=== PATIENT | male | born 1940 | race Caucasian/White ===

== ENCOUNTER 2017-01-06 09:50 | Inpatient (IN) | payer MEDICARE, OTHER ==
[~2017-01-06] VITALS: Ht 193 cm; Wt 66.2 kg
[2017-01-06 11:31] LABS: HEMOGLOBIN 13.8 gm/dl (14.0-17.5); RED BLOOD COUNT 4.52 M/UL (4.20-5.50); WHITE BLOOD COUNT 19.8 K/UL (4.5-11.0)
[2017-01-06] MEDS ORDERED: LEVEMIR100 UNIT/1 SQ (20:56)
[2017-01-06] MEDS ORDERED: ROCEPHIN 11 G/50 ML INJ (20:57)
[2017-01-06] MEDS ORDERED: NAMENDA5 MG PO ×2 (20:58→20:59)
[2017-01-06] MEDS ORDERED: NAMENDA10 MG PO (20:59)
[2017-01-06] MEDS ORDERED: B-1100 MG PO (21:00)
[2017-01-06] MEDS ORDERED: ZESTRIL 40 MG T40 MG PO (21:00)
[2017-01-06] MEDS ORDERED: VITAMIN B12-FO1 EACH PO (21:01)
[2017-01-06] MEDS ORDERED: GLUCOTROL5 MG PO (21:01)
[2017-01-06] MEDS ORDERED: TOPROL XL 25 MG25 MG PO (21:01)
[2017-01-06] MEDS ORDERED: PROSCAR 5 MG TAB5 MG PO (21:02)
[2017-01-06] MEDS ORDERED: WELLBUTRIN 75 M75 MG PO (21:02)
[2017-01-06] MEDS ORDERED: OMEPRAZOLE20 MG PO (21:02)
[2017-01-06] MEDS ORDERED: FUROSEMIDE20 MG PO (21:03)
[2017-01-06] MEDS ORDERED: PRINIVIL20 MG PO (21:03)
[2017-01-06] MEDS ORDERED: SYNTHROID175 MCG PO (21:03)
[2017-01-07 03:12] LABS: WHITE BLOOD COUNT 21.1 K/UL (4.5-11.0)
[2017-01-07 03:15] LABS: RED BLOOD COUNT 3.94 M/UL (4.20-5.50)
[2017-01-08 05:04] LABS: HEMOGLOBIN 12.2 gm/dl (14.0-17.5); RED BLOOD COUNT 3.97 M/UL (4.20-5.50); WHITE BLOOD COUNT 21.9 K/UL (4.5-11.0)
[2017-01-09 05:24] LABS: HEMOGLOBIN 12.4 gm/dl (14.0-17.5); RED BLOOD COUNT 4.05 M/UL (4.20-5.50)
[2017-01-09 05:25] LABS: WHITE BLOOD COUNT 13.7 K/UL (4.5-11.0)
[2017-01-09 05:43] LABS: BUN/CREATININE RATIO 36 (0-10)
[2017-01-10 05:02] LABS: HEMOGLOBIN 11.9 gm/dl (14.0-17.5); RED BLOOD COUNT 3.83 M/UL (4.20-5.50); WHITE BLOOD COUNT 10.6 K/UL (4.5-11.0)
[2017-01-10 05:36] LABS: BUN/CREATININE RATIO 35 (0-10)
[2017-01-12 03:38] LABS: HEMOGLOBIN 11.9 gm/dl (14.0-17.5); RED BLOOD COUNT 3.91 M/UL (4.20-5.50); WHITE BLOOD COUNT 8.9 K/UL (4.5-11.0)
[2017-01-12 03:53] LABS: BUN/CREATININE RATIO 21 (0-10)
[2017-01-13 03:48] LABS: HEMOGLOBIN 11.8 gm/dl (14.0-17.5); RED BLOOD COUNT 3.93 M/UL (4.20-5.50); WHITE BLOOD COUNT 7.2 K/UL (4.5-11.0)
[2017-01-13 04:09] LABS: BUN/CREATININE RATIO 13 (0-10)
[2017-01-13] MEDS ORDERED: VANCOCIN 125MG/2.5ML IV (12:48)
[2017-01-13] MEDS ORDERED: LOPRESSOR 25 MG25 MG PO (12:49)
[2017-01-13] MEDS ORDERED: NITROGLYCE20 MG/1 GM TOP (12:51)
[2017-01-13] MEDS ORDERED: PROTONIX20 MG PO (12:52)
[2017-01-13] MEDS ORDERED: TYLENOL 325MG325 MG PO (12:53)
[2017-01-13] MEDS ORDERED: TYLENOL 650 MG650 MG PR (12:54)
[2017-01-13] MEDS ORDERED: SYNTHROID175 MCG PO (12:55)
[2017-01-13] MEDS ORDERED: LEVAQUIN I750 MG/150 IV (15:26)
[2017-01-13] MEDS ORDERED: VANCOCIN 125MG/2.5ML PO (15:28)
== END 2017-01-13 08:00 | DRG 871 ==
LOC: ER1 09:50 → PROG CARE 15:52 → ZEROF 15:52 → PROG CARE 20:28
PROVIDERS: Family Medicine; Internal Medicine; ADMIT Emergency Medicine
DX: A41.9 Sepsis, unspecified organism (principal); J69.0 Pneumonitis due to inhalation of food and vomit; J96.01 Acute respiratory failure with hypoxia; G92 Toxic encephalopathy; E44.0 Moderate protein-calorie malnutrition; Z68.1 Body mass index [BMI] 19.9 or less, adult; N17.9 Acute kidney failure, unspecified; E87.0 Hyperosmolality and hypernatremia; E87.2 Acidosis; E86.0 Dehydration; E11.65 Type 2 diabetes mellitus with hyperglycemia; G30.9 Alzheimer's disease, unspecified; F02.80 Dementia in other diseases classified elsewhere, unspecified severity, without behavioral disturbance, psychotic disturbance, mood disturbance, and anxiety; I25.10 Atherosclerotic heart disease of native coronary artery without angina pectoris; I10 Essential (primary) hypertension; F32.9 Major depressive disorder, single episode, unspecified; E03.9 Hypothyroidism, unspecified; R25.1 Tremor, unspecified; H04.129 Dry eye syndrome of unspecified lacrimal gland; K21.9 Gastro-esophageal reflux disease without esophagitis; Z86.010 Personal history of colon polyps; N40.0 Benign prostatic hyperplasia without lower urinary tract symptoms; E04.9 Nontoxic goiter, unspecified; Z99.81 Dependence on supplemental oxygen; B95.62 Methicillin resistant Staphylococcus aureus infection as the cause of diseases classified elsewhere
CPT/HCPCS: 36415; 36600; 51701; 71010; 80048; 80053; 80202; 81001; 82550; 82553; 82803; 82962; 83605; 83874; 84132; 84484; 85025; 85027; 87040; 87070; 87077; 87086; 87186; 87205; 92526; 92610; 93005; 94664; 96365; 96375; 99285; C9113; J1650; J1956; J2060; J2543; J3370; J3480; J7030; J7040; J7050; J7060; J7070